=== PATIENT | female | born 2000 | race Caucasian/White ===

== ENCOUNTER 2020-04-15 22:32 | Emergency (ER) | payer MEDICAID ==
[~2020-04-15] VITALS: Ht 165.1 cm; Wt 65.9 kg
--- NOTE | 2020-04-15 22:41 | NUR ---
PATIENT REFUSING VS, STATES "I WON'T HURT YOU UNLESS YOU TOUCH ME".
--- NOTE | 2020-04-15 22:58 | NUR ---
PT REFUSING LABS AT THIS TIME. ERP AWARE.
--- NOTE | 2020-04-15 22:58 | NUR ---
EMERGENCY CONTACT PRISCILA OQUENDO, MOTHER [phone]
[2020-04-15] MEDS ORDERED: ZIPRASIDONE 20 MG INJ IM ONE ×3 (23:08→23:30)
--- NOTE | 2020-04-15 23:29 | NUR ---
PT MEDICATED PER MAR AND X4 HARD RESTRAINTS APPLIED D/T PT THREATENING STAFF WITH HARM. PT ALSO STATING "I HATE MYSELF I DON'T WANT TO BE HERE, I DON'T NEED YOU". X4 RESTRAINTS APPLIED, NEUROVASCULAR INTACT.
[2020-04-15] MEDS ORDERED: LORazepam 1MG TABLET PO ONE (23:30)
[2020-04-15 23:41] VITALS: BP 117/84
--- NOTE | 2020-04-15 23:46 | NUR ---
PT LESS AGITATED AND COOPERATIVE, STATES "I WANT SOME FOOD". PT NOT CURRENTLY READY FOR D/C OF RESTRAINTS AT THIS TIME. NEUROVASCULAR INTACT ON ALL 4.
[2020-04-15 23:55] LABS: BASOPHILS # (AUTO) 0.04 x10^3/uL (0-0.3); BASOPHILS % (AUTO) 1 % (0-1); EOSINOPHILS # (AUTO) 0.06 x10^3/uL (0-0.8); EOSINOPHILS % (AUTO) 1 % (1-7); LYMPHOCYTES # (AUTO) 2.17 x10^3/uL (1-6.1); LYMPHOCYTES % (AUTO) 28 % (22-44); MD NO; MEAN CORPUSCULAR HEMOGLOBIN 30.7 pg (27.0-34.8); MEAN CORPUSCULAR HGB CONC 33.6 g/dL (32.4-35.8); MEAN CORPUSCULAR VOLUME 91.3 fL (80-100); MEAN PLATELET VOLUME 8.7 fL (7.4-10.4); MONOCYTES # (AUTO) 0.55 x10^3/uL (0-1.4); MONOCYTES % (AUTO) 7 % (2-9); NEUTROPHILS # (AUTO) 4.91 x10^3/uL (1.8-8.0); NEUTROPHILS % (AUTO) 64 % (42-75); PLATELET COUNT 261 x10^3/uL (130-400); RED BLOOD COUNT 4.75 x10^6/uL (3.82-5.3); RED CELL DISTRIBUTION WIDTH 13.2 % (9.6-15.2)
--- NOTE | 2020-04-16 00:01 | NUR ---
DISCUSSED POC WITH PT. PT AGREEABLE TO PROVIDE UA AT THIS TIME. SECURITY CALLED TO D/C RESTRAINTS. PT CALM AND COOPERATIVE. REPORTS "FEELING A LITTLE BETTER".
[2020-04-16 00:07] LABS: ALANINE AMINOTRANSFERASE 20 U/L (12-78); ANION GAP 8 mmol/L (5-15); CALCIUM 8.4 mg/dL (8.5-10.1); CHLORIDE 106 mmol/L (98-107); CREATININE 0.83 mg/dL (0.55-1.02); SALICYLATE LEVEL 2.3 mg/dL (2.8-20.0)
[2020-04-16 00:12] LABS: ALKALINE PHOSPHATASE 65 U/L (45-117); BILIRUBIN,TOTAL 0.6 mg/dL (0.2-1.0); TOTAL PROTEIN 7.4 g/dL (6.4-8.2)
--- NOTE | 2020-04-16 00:15 | NUR ---
RESTRAINTS DISCONTINUED. PT PROVIDED UA, SENT TO LAB. PT PROVIDED X2 WARM BLANKETS AND SOCKS. SITTER IN HALLWAY WITHIN LINE OF SIGHT, ROOM SECURED.
--- NOTE | 2020-04-16 00:17 | NUR ---
TASK RN: PT RESTING IN [facility] AT THIS TIME WITH SITTER OUTSIDE OF PT ROOM FOR DIRECT OBSERVATION OF PT.
--- NOTE | 2020-04-16 00:24 | NUR ---
PT PROVIDED MEAL AND WATER PER DR. XIONG
[2020-04-16 00:28] LABS: MICROSCOPIC NOT IND
[2020-04-16 00:36] LABS: AMPHETAMINE SCREEN, URINE Positive (Negative); BARBITURATE SCREEN, URINE Negative (Negative); BENZODIAZEPINE SCREEN, URINE Negative (Negative); CANNABINOID SCREEN, URINE Positive (Negative); COCAINE SCREEN, URINE Negative (Negative); METHADONE SCREEN, URINE Negative (Negative); OPIATE SCREEN, URINE Negative (Negative)
--- NOTE | 2020-04-16 02:20 | NUR ---
[facility] CALLED AND REPORTS [facility] ACCEPTANCE TO BE 5A. [facility] REPORTS [facility] ACCEPTANCE TO BE 415AM. BOTH FACILITIES WILL CALL BACK AROUND THAT TIME.
--- NOTE | 2020-04-16 02:27 | NUR ---
PT RESTING ON GURNEY WITH EYES CLOSED, RESPIRATIONS EVEN AND NONLABORED. SITTER IN HALLWAY WITHIN LINE OF SIGHT, ROOM SECURED.
--- NOTE | 2020-04-16 04:15 | NUR ---
PT RESTING ON GURNEY WITH EYES CLOSED, RESPIRATIONS EVEN AND NONLABORED. SITTER IN HALLWAY WITHIN LINE OF SIGHT, ROOM SECURED.
--- NOTE | 2020-04-16 06:27 | NUR ---
SPOKE WITH MOTHER, REPORTS PROZAC AND RESPIRIDONE WERE HER MEDICATIONS, SHE STOPPED TAKING THEM X1 WEEK AGO D/T MAKING HER DROWSY.
--- NOTE | 2020-04-16 06:47 | NUR ---
PT ACCEPTED TO [facility].
--- NOTE | 2020-04-16 06:54 | NUR ---
Alissa oliveira in [facility] - 04/16/20 at 0723 by NICHOL ASHELY PATEL
--- NOTE | 2020-04-16 07:18 | NUR ---
REPORT TO MATTIE AT [facility]
== END 2020-04-16 09:00 ==
LOC: ED 04-16 00:25
DX: F15.951 Other stimulant use, unspecified with stimulant-induced psychotic disorder with hallucinations (principal); R45.851 Suicidal ideations; Z91.14 Patient's other noncompliance with medication regimen
CPT/HCPCS: 36415; 80053; 80307; 81003; 84703; 85025; 87086; 96372; 99285; J3486

== ENCOUNTER 2020-04-29 12:23 | Emergency (ER) | payer MEDICAID ==
[~2020-04-29] VITALS: Ht 162.6 cm; Wt 65.0 kg
[2020-04-29 12:39] VITALS: BP 113/65
--- NOTE | 2020-04-29 13:01 | NUR ---
THIS IS A 20 YO F BIB [employer] FOR SI. PER DARA ARCINIEGA PT REPORTS THAT SHE WAS FEELING UNCOMFORTABLE IN CUSTODY SO TOLD THEM SHE WAS SI TO GET OUT. PT DENIES SI/SA/HI TO THIS RN. PT REPORTS HX OF BIPOLAR DISORDER. PT AMBULATED TO THE W/ A STEADY GAIT. URINE COLLECTED AND SENT TO LAB. PT RESTING ON GURNEY W/ GARAGE DOORS DOWN AND SITTER OUTSIDE ROOM FOR SAFETY. KACEY RAY.
--- NOTE | 2020-04-29 13:13 | NUR ---
PT PROVIDED W/ MEAL TRAY. PT CALM AND COOPERATIVE AT THIS TIME.
[2020-04-29 13:14] LABS: BASOPHILS # (AUTO) 0.02 x10^3/uL (0-0.3); BASOPHILS % (AUTO) 0 % (0-1); EOSINOPHILS # (AUTO) 0.13 x10^3/uL (0-0.8); EOSINOPHILS % (AUTO) 2 % (1-7); LYMPHOCYTES # (AUTO) 1.78 x10^3/uL (1-6.1); LYMPHOCYTES % (AUTO) 22 % (22-44); MD NO; MEAN CORPUSCULAR HEMOGLOBIN 30.6 pg (27.0-34.8); MEAN CORPUSCULAR HGB CONC 33.1 g/dL (32.4-35.8); MEAN CORPUSCULAR VOLUME 92.3 fL (80-100); MEAN PLATELET VOLUME 8.7 fL (7.4-10.4); MONOCYTES # (AUTO) 0.41 x10^3/uL (0-1.4); MONOCYTES % (AUTO) 5 % (2-9); NEUTROPHILS # (AUTO) 5.93 x10^3/uL (1.8-8.0); NEUTROPHILS % (AUTO) 72 % (42-75); PLATELET COUNT 291 x10^3/uL (130-400)
[2020-04-29 13:16] LABS: AMPHETAMINE SCREEN, URINE Negative (Negative); BARBITURATE SCREEN, URINE Negative (Negative); BENZODIAZEPINE SCREEN, URINE Negative (Negative); CANNABINOID SCREEN, URINE Positive (Negative); COCAINE SCREEN, URINE Negative (Negative); METHADONE SCREEN, URINE Negative (Negative); OPIATE SCREEN, URINE Negative (Negative)
[2020-04-29 13:21] LABS: HCG UR SG 1.025 (1.003-1.030)
[2020-04-29 13:27] LABS: ALBUMIN 3.7 g/dL (3.4-5.0); ANION GAP 2 mmol/L (5-15); CALCIUM 8.9 mg/dL (8.5-10.1); CHLORIDE 106 mmol/L (98-107)
[2020-04-29 13:29] LABS: MICROSCOPIC INDICATED
[2020-04-29 13:31] LABS: ALANINE AMINOTRANSFERASE 23 U/L (12-78); ALKALINE PHOSPHATASE 64 U/L (45-117); BILIRUBIN,TOTAL 0.4 mg/dL (0.2-1.0); CREATININE 0.82 mg/dL (0.55-1.02); TOTAL PROTEIN 7.3 g/dL (6.4-8.2)
--- NOTE | 2020-04-29 13:55 | NUR ---
MARY ORTIZ AT BEDSIDE FOR EVAL.
--- NOTE | 2020-04-29 14:07 | NUR ---
PT AMBULATED TO THE PHONE TO CALL MOTHER AND LET HER KNOW SHE IS OUT OF CARE HOME. ACCOMPANIED BY SITTER. PT AMBULATED BACK TO ROOM W/O INCIDENT.
--- NOTE | 2020-04-29 15:12 | NUR ---
PER DARA ARCINIEGA PT TBDC. PT BELONGINGS RETURNED. KACEY.
--- NOTE | 2020-04-29 15:24 | NUR ---
Patient given discharge instructions and they have confirmed that they understand the instructions. Patient ambulatory with steady gait.
== END 2020-04-29 15:25 | disposition home or self-care (01) ==
LOC: ED 14:28
DX: F33.9 Major depressive disorder, recurrent, unspecified (principal); R45.851 Suicidal ideations
CPT/HCPCS: 36415; 80053; 80178; 80307; 81001; 81025; 85025; 87086; 99283